=== PATIENT | male | born 1995 | race American Indian/Alaskan Native ===

== ENCOUNTER 2019-09-10 15:33 | Emergency (ER) | payer SELFPAY ==
[2019-09-10 19:04] VITALS: BP 109/63
--- NOTE | 2019-09-10 19:07 | Emergency Department Report ---
HPI - General Chief Complaint: Earache - HPI HPI: ED Triage The pt is a 24 y/o M p/w a cc of cough and left ear pain. Pt denies fever or rhinnorhea ED Past Medical Hx - Past Medical History Previous Medical History?: No - Surgical History Past Surgical History?: No - Family History Family history: no significant - Social History Smoking Status: Never Smoker - Medications Home Medications: Home Medications Medication Instructions Recorded Confirmed Last Taken Type Amoxicillin [Amoxicillin TAB] 875 mg PO BID #14 tablet 09/10/19 Unknown Rx Ibuprofen [Motrin 800 MG tab] 800 mg PO Q8HR PRN #20 tablet 09/10/19 Unknown Rx traMADoL [Ultram] 50 mg PO Q6HR PRN #14 tablet 09/10/19 Unknown Rx ED Review of Systems ROS: Stated complaint: COUGH,HEADACHE Other details as noted in HPI Constitutional: denies: fever ENT: ear pain Physical Exam - Physical Exam Physical Exam: GEN: WD WN M sitting on chair in NAD HEENT: bilat TMS occluded by cerumen. Nasal congestion ED Medical Decision Making - Differential Diagnosis URI, Sinusitis, otitis media Critical care attestation.: If time is entered above; I have spent that time in minutes in the direct care of this critically ill patient, excluding procedure time. ED Disposition Clinical Impression: URI (upper respiratory infection), Left ear pain Disposition: TO HOME OR SELFCARE Is pt being admited?: No Does the pt Need Aspirin: No Condition: Stable Instructions: Upper Respiratory Infection (ED) Prescriptions: Amoxicillin [Amoxicillin TAB] 875 mg PO BID #14 tablet Ibuprofen [Motrin 800 MG tab] 800 mg PO Q8HR PRN #20 tablet PRN Reason: Pain, Moderate (4-6) traMADoL [Ultram] 50 mg PO Q6HR PRN #14 tablet PRN Reason: Pain Referrals: EDWAR BURGOS MD [Staff Physician] - 3-5 Days Time of Disposition: 19:07
== END 2019-09-10 19:30 | disposition home or self-care (01) ==
LOC: ED 15:33
DX: J06.9 Acute upper respiratory infection, unspecified (principal); H92.02 Otalgia, left ear; Z79.1 Long term (current) use of non-steroidal anti-inflammatories (NSAID); Z79.2 Long term (current) use of antibiotics; Z79.899 Other long term (current) drug therapy
CPT/HCPCS: 99282

== ENCOUNTER 2019-10-30 22:44 | Emergency (ER) | payer MEDICARE ==
[2019-10-30 23:04] VITALS: BP 132/92
[2019-10-30 23:44] LABS: Bilirubin,Urine NEG (Negative); Blood,Urine MOD (Negative); Color,Urine Yellow (Yellow); Protein,Urine <15 mg/dL mg/dL (Negative); Urobilinogen,Urine < 2.0 mg/dL (<2.0)
--- NOTE | 2019-10-31 00:04 | Emergency Department Report ---
ED Male HPI - General Chief complaint: Urogenital-Male Stated complaint: PENILE BLEEDING Time Seen by Provider: 10/30/19 23:56 Source: patient, EMS Mode of arrival: Ambulatory Limitations: No Limitations - History of Present Illness Initial comments: Patient here report that he was at dialysis and after dialysis he went to the bathroom when he noticed blood from penis. Denies any penile pain. Denies any injury. Denies any abdominal or back pain. Denies any urinary burning, frequency or urgency. Denies any back pain or penile discharge. Denies any concern for STD. Patient live in a senior care and said that he was sent by senior care personnel and that they will pick him up in the morning. Patient denies any fever or chills. He said this started after dialysis MD Complaint: other (Reports bleeding from penis) -: This evening Location: penis Radiation: none Severity: mild Severity scale (0 -10): 1 (At the end of penis) Quality: other (Sharp) Consistency: intermittent Improves with: none Worsens with: palpation, movement denies: discharge, swelling, mass, rash, urinary retention, blood in urine, dysuria, fever, nausea/vomiting, incontinence - Related Data Sexually active: No Previous Rx's Medication Instructions Recorded Last Taken Type Amoxicillin [Amoxicillin TAB] 875 mg PO BID #14 tablet 09/10/19 Unknown Rx Ibuprofen [Motrin 800 MG tab] 800 mg PO Q8HR PRN #20 tablet 09/10/19 Unknown Rx traMADoL [Ultram] 50 mg PO Q6HR PRN #14 tablet 09/10/19 Unknown Rx Neomycin/Bacitracin/Polymyxinb 1 each TP BID 7 Days #5 oint.pack 10/31/19 Unknown Rx [Neosporin Ointment Packet] Allergies Allergy/AdvReac Type Severity Reaction Status Date / Time No Known Allergies Allergy Verified 09/10/19 15:43 ED Review of Systems ROS: Stated complaint: PENILE BLEEDING Other details as noted in HPI Constitutional: denies: chills, fever ENT: denies: throat pain Respiratory: denies: cough, shortness of breath, wheezing Cardiovascular: denies: chest pain, palpitations, edema, syncope Gastrointestinal: denies: abdominal pain, nausea, vomiting, diarrhea, constipation, hematemesis, hematochezia Genitourinary: other (Bleeding at penis). denies: urgency, dysuria, frequency, hematuria, discharge, testicular pain, testicular mass Skin: denies: rash Neurological: denies: headache ED Past Medical Hx - Past Medical History Previous Medical History?: Yes Hx Renal Disease: Yes (On dialysis) Hx Asthma: Yes - Surgical History Past Surgical History?: No - Family History Family history: hypertension - Social History Smoking Status: Never Smoker Substance Use Type: None - Medications Home Medications: Home Medications Medication Instructions Recorded Confirmed Last Taken Type Amoxicillin [Amoxicillin TAB] 875 mg PO BID #14 tablet 09/10/19 Unknown Rx Ibuprofen [Motrin 800 MG tab] 800 mg PO Q8HR PRN #20 tablet 09/10/19 Unknown Rx traMADoL [Ultram] 50 mg PO Q6HR PRN #14 tablet 09/10/19 Unknown Rx Neomycin/Bacitracin/Polymyxinb 1 each TP BID 7 Days #5 oint.pack 10/31/19 Unknown Rx [Neosporin Ointment Packet] ED Physical Exam - General Limitations: No Limitations General appearance: alert, in no apparent distress - Head Head exam: Present: atraumatic, normocephalic - Eye Eye exam: Present: normal appearance, PERRL, EOMI - ENT ENT exam: Present: normal exam, normal orophraynx, mucous membranes moist - Neck Neck exam: Present: normal inspection, full ROM. Absent: tenderness - Respiratory Respiratory exam: Present: normal lung sounds bilaterally. Absent: respiratory distress, chest wall tenderness - Cardiovascular Cardiovascular Exam: Present: regular rate, normal rhythm, normal heart sounds - GI/Abdominal GI/Abdominal exam: Present: soft, normal bowel sounds. Absent: distended, tenderness, guarding, rebound, rigid, organomegaly, mass, bruit, pulsatile mass, hernia - exam: Present: other (Small abrasion noted to distal penis on skin externally). Absent: normal inspection, testicular tenderness, urethral discharge, scrotal swelling, circumcision External exam: Present: bleeding (Scant bleeding noted from distal penis externally on skin. Noted abrasion. No bleeding noted from urethra). Absent: erythema, swelling, lesions, lacerations - Expanded Exam Expanded Male exam: Absent: phimosis, paraphimosis, penile swelling, lesions, induration, erythema, perineal induration, balanitis, priapism exam: Cremasteric Reflex Present: Left, Right - Extremities Exam Extremities exam: Present: normal inspection, full ROM, pedal edema - Back Exam Back exam: Present: normal inspection, full ROM. Absent: CVA tenderness (R), CVA tenderness (L) - Neurological Exam Neurological exam: Present: alert, oriented X3, normal gait - Psychiatric Psychiatric exam: Present: normal affect, normal mood - Skin Skin exam: Present: warm, dry, abrasion (Abrasion noted to penis distally. Noted to skin externally) ED Course Vital Signs 10/30/19 22:50 Temperature 98.6 F Pulse Rate 83 Respiratory 18 Rate Blood Pressure 132/92 O2 Sat by Pulse 99 Oximetry - Reevaluation(s) Reevaluation #1: 10/31/19 01:23 Noted abrasion to skin fold distally and penis. Penis is noncircumcised. No paraphimosis or phimosis. Abrasion area noted with scant bleeding. Area cleansed with normal saline, dressing placed aside. Patient tetanus vaccine is less than 5 years ED Medical Decision Making - Lab Data Lab Results 10/30/19 Range/Units Unknown Urine Color Yellow (Yellow) Urine Turbidity Clear (Clear) Urine pH 5.0 (5.0-7.0) Ur Specific [place] 1.017 (1.003-1.030) Urine Protein <15 mg/dl (Negative) mg/dL Urine Glucose (UA) Neg (Negative) mg/dL Urine Ketones Neg (Negative) mg/dL Urine Blood Mod (Negative) Urine Nitrite Neg (Negative) Urine Bilirubin Neg (Negative) Urine Urobilinogen < 2.0 (<2.0) mg/dL Ur Leukocyte Esterase Neg (Negative) Urine WBC (Auto) 1.0 (0.0-6.0) /HPF Urine RBC (Auto) 36.0 (0.0-6.0) /HPF U Epithel Cells (Auto) < 1.0 (0-13.0) /HPF - Medical Decision Making This is a 24-year-old male here for noted bleeding to penis. Found to have abrasion to the end of his penis on the skin. Area cleansed and dressed and placed aside. I discussed diagnosis and treatment plan with patient he voiced understanding patient with abrasion to skin of penis externally. Urinalysis normal except he has moderate blood which is coming from the bleeding from his abrasion site. Area hemostased prior to dressing. Patient is stable. Vital signs stable and is in no acute distress. Patient to follow-up with his primary care and given prescription for Neosporin with instructions on application. He voiced understanding Critical care attestation.: If time is entered above; I have spent that time in minutes in the direct care of this critically ill patient, excluding procedure time. ED Disposition Clinical Impression: Penile abrasion Qualifiers: Encounter type: initial encounter Qualified Code(s): S30.812A - Abrasion of penis, initial encounter Disposition: TO HOME OR SELFCARE Is pt being admited?: No Does the pt Need Aspirin: No Condition: Stable Instructions: Abrasion (ED) Additional Instructions: Please follow-up with your primary care physician in 2 to 3 days You are not bleeding from inside your penis you have a scratch breezy on the outside of your penis that was bleeding and its nonstop. If condition worsen, return to the emergency room Apply Neosporin ointment to the area twice daily Keep affected area clean and dry Prescriptions: Neomycin/Bacitracin/Polymyxinb [Neosporin Ointment Packet] 1 each TP BID 7 Days #5 oint.pack Referrals: PRIMARY CARE, [Primary Care Provider] - 2-3 Days
== END 2019-10-31 01:33 | disposition home or self-care (01) ==
LOC: ED 22:44
DX: S30.812A Abrasion of penis, initial encounter (principal); X58.XXXA Exposure to other specified factors, initial encounter; Y93.89 Activity, other specified; Y92.89 Other specified places as the place of occurrence of the external cause; Y99.8 Other external cause status
CPT/HCPCS: 81001